=== PATIENT | female | born 1950 | race African-American/Black ===

== ENCOUNTER 2016-08-29 12:16 | Outpatient (CLI) | payer MEDICARE ==
[2016-08-29 13:07] LABS: Hemoglobin 12.3 g/dL (12.0-16.0); Mean Corpuscular HGB CONC 32.6 g/dL (32.0-36.0); Mean Corpuscular Hemoglobin 27.3 pg (27.0-31.0); Mean Corpuscular Volume 83.7 fl (81.0-99.0); Mean Platelet Volume 7.7 fL (7.4-10.4); Platelet Count 211 thou/uL (130-400); RBC Distribution Width 12.7 % (11.5-14.5); Red Blood Cell (RBC) Count 4.49 mill/uL (4.20-5.40); White Blood Cell (WBC) Count 4.8 thou/uL (4.8-10.8)
[2016-08-29 13:27] LABS: ALT (SGPT) 21 U/L (0-55); AST (SGOT) 18 U/L (5-34); Albumin 3.9 g/dL (3.4-4.8); Alkaline Phosphatase 67 U/L (40-150); Anion Gap 15 mmol/L (10-20); BUN (Urea Nitrogen) 35 mg/dL (9.8-20.1); Bilirubin, Total 0.3 mg/dL (0.2-1.2); Calc. Creatinine Clearance 0 mL/min (70-130); Calcium 10.2 mg/dL (7.8-10.44); Carbon Dioxide 28 mmol/L (23-31); Cardiac Risk 2.4 (Less than 4.5); Chloride 103 mmol/L (98-107); Cholesterol 102 mg/dL (< 200 Desired); Estimated GFR-MDRD 58; Globulin 3.9 g/dL (2.4-3.5); Glucose 76 mg/dL (80-115); HDL Cholesterol 43 mg/dL (>60 Neg Risk); LDL Cholesterol, Calculated 50 mg/dL; Potassium 3.6 mmol/L (3.5-5.1); Protein, Total 7.8 g/dL (5.8-8.1); Sodium 142 mmol/L (136-145); Triglycerides 45 mg/dL (Less than 150)
--- NOTE | 2016-08-29 16:10 | RAD ---
RIGHT KNEE THREE VIEWS: Date: 08-29-16 History: Chronic knee pain without trauma. FINDINGS: There is severe medial compartment degenerative change with prominent joint space narrowing, subchon dral formation, and osteophyte formation. There is lateral osteophyte formation as well. No knee joint effusion, fracture, or dislocation. There is patellofemoral joint space narrowing and osteophyte formation. No displaced fracture or dislocation. IMPRESSION: Multi-compartment degenerative change, severe within the medial compartment. POS: [facility]
--- NOTE | 2016-08-29 16:24 | RAD ---
LEFT KNEE THREE VIEWS: History: Chronic pain. Comparison: None. FINDINGS: Severe degenerative change in the medial compartment. Mild degenerative change in the lateral zackery rtment. There is osteophyte formation along the lateral compartment. No fracture or dislocation. IMPRESSION: Degenerative changes as above. POS: [facility]
== END 2016-08-29 12:17 | disposition home or self-care (01) ==
LOC: MADLAB 12:16
PROVIDERS: ATTEND General Practice
DX: M25.569 Pain in unspecified knee (principal); E11.69 Type 2 diabetes mellitus with other specified complication; I10 Essential (primary) hypertension; R51 Headache
CPT/HCPCS: 36415; 80053; 80061; 84443; 85027; 85652

== ENCOUNTER 2017-01-26 14:55 | Emergency (ER) | payer MEDICARE, MEDICAID ==
[2017-01-26] MEDS ORDERED: Ketorolac Tromethamine 30 MG/ML VIAL ONE (16:06)
[2017-01-26 16:36] LABS: Red Blood Cell (RBC) Count 4.42 mill/uL (4.20-5.40); White Blood Cell (WBC) Count 7.3 thou/uL (4.8-10.8)
[2017-01-26 16:37] LABS: MDiff Complete? YES; Manual Diff?? YES; Mean Corpuscular HGB CONC 31.9 g/dL (32.0-36.0); Mean Corpuscular Hemoglobin 27.1 pg (27.0-31.0); Mean Corpuscular Volume 85.1 fL (81.0-99.0); Mean Platelet Volume 8.6 fL (7.4-10.4); Platelet Count 182 thou/uL (130-400)
[2017-01-26 16:38] LABS: ALT (SGPT) 18 U/L (8-55); AST (SGOT) 15 U/L (5-34); Albumin 3.9 g/dL (3.4-4.8); Alkaline Phosphatase 67 U/L (40-150); Anion Gap 14 mmol/L (10-20); BUN (Urea Nitrogen) 27 mg/dL (9.8-20.1); Bilirubin, Total 0.4 mg/dL (0.2-1.2); Calc. Creatinine Clearance 0 mL/min (70-130); Calcium 10.4 mg/dL (7.8-10.44); Carbon Dioxide 27 mmol/L (23-31); Chloride 103 mmol/L (98-107); Estimated GFR-MDRD 44; Globulin 4.1 g/dL (2.4-3.5); Potassium 3.8 mmol/L (3.5-5.1); Sodium 140 mmol/L (136-145); Uric Acid 10.2 mg/dL (2.6-6.0)
[2017-01-26 16:47] LABS: Anisocytosis SLIGHT = 6-15 cells (100X) (0-5/hpf); Lymphocytes 31 % (21-51); Monocytes 6 % (0-10); Neutrophil 63 % (42-75); PLT Morphology Comment Appears Adequate
[2017-01-26 16:51] LABS: Glucose 50 mg/dL (80-115)
--- NOTE | 2017-01-26 17:02 | RAD ---
THREE VIEWS LEFT FOOT 01/26/17 COMPARISON: None. HISTORY: Left foot pain FINDINGS: Three views left foot are limited as one of the views is blurry secondary to motion. No fracture or dislocation are appreciated. Mild distal soft tissue swelling is seen. No degenerative changes are p resent. IMPRESSION: No evidence of acute osseous abnormality. POS: [facility]
--- NOTE | 2017-01-26 17:07 | RAD ---
THREE VIEWS OF THE LEFT ANKLE 01/26/17 COMPARISON: None. HISTORY: Left ankle pain. FINDINGS: Three views of the left ankle shows no evidence of acute fracture or dislocation. A small ossific fr agment adjacent to the medial malleolus is likely sequela from remote trauma. Mild diffuse soft tiss ue swelling is seen. IMPRESSION: No evidence of acute osseous abnormality. POS: [facility]
[2017-01-26] MEDS ORDERED: Colchicine 0.6 MG TAB ONE ×2 (17:08→17:13)
== END 2017-01-26 18:20 | disposition home or self-care (01) ==
LOC: MADERS 14:55
DX: M10.9 Gout, unspecified (principal); E11.649 Type 2 diabetes mellitus with hypoglycemia without coma; E78.5 Hyperlipidemia, unspecified; E78.00 Pure hypercholesterolemia, unspecified; J45.909 Unspecified asthma, uncomplicated; G47.30 Sleep apnea, unspecified; I10 Essential (primary) hypertension; Z79.899 Other long term (current) drug therapy
CPT/HCPCS: 36416; 80053; 84550; 85025; 96372; J1885